=== PATIENT | male | born 1955 | race Caucasian/White ===

== ENCOUNTER 2018-07-10 08:36 | Emergency (ER) | payer BC, MEDICARE ==
[~2018-07-10] VITALS: Ht 180.3 cm; Wt 120.2 kg
[~2018-07-10 08:36] MED LIST: COUMADIN5 MG PO; FLAGYL500 MG PO; FLOMAX0.4 MG PO; KETOROLAC TROME10 MG PO; LEVAQUIN500 MG PO; TYLENOL WITH C1 EACH PO; ZOFRAN ODT4 MG SL
--- OUTSIDE RECORDS SUMMARY | 2018-07-10 08:39 | XMS REPORT ---
Author Author [facility] Address Unknown Phone Unavailable Care Team Providers Care Pin Or Clip Fastener Name Role Phone Unavailable Unavailable Payers Payer Name Policy Type Policy Number Effective Date Expiration Date Problems This patient has no known problems. Allergies, Adverse Reactions, Alerts Allergy Name Allergy Type Status Severity Reaction(s) Onset Date Inactive Date Treating Clinician Comments No Known Contrast Allergies DA Active U 2008-08-30 00:00:00 No Known Drug Allergies DA Active U 2008-08-30 00:00:00 No Known Food Allergies DA Active U 2008-08-30 00:00:00 No Known Other Allergies DA Active U 2008-08-30 00:00:00 Medications This patient has no known medications.
[2018-07-10] MEDS ORDERED: HYDROMORPHONE 1MG/1ML INJ IV STA (08:51)
[2018-07-10] MEDS ORDERED: KETOROLAC TROMETHAMINE 30 MG/ML VIAL IV STA (08:51)
[2018-07-10] MEDS ORDERED: SODIUM CHLORIDE 0.9% 1000ML 1,000 ML IV STA (08:51)
[2018-07-10] MEDS ORDERED: ONDANSETRON HCL INJ 2MG/ML 2ML 2 MG/ML VIAL IV STA (08:51)
[2018-07-10] MEDS ORDERED: HYDROMORPHONE 2MG/ML 2 MG/ML ML IV ONE (09:00)
[2018-07-10 09:32] LABS: BASOPHILS # (AUTO) 0.1 (0.0-0.1); BASOPHILS % 0.9 % (0.0-1.0); EOSINOPHILS # (AUTO) 0.3 (0.0-0.4); EOSINOPHILS % 3.3 % (0.0-6.0); HEMATOCRIT 46.9 % (38.2-49.6); LYMPHOCYTES # (AUTO) 1.1 (1.0-3.2); LYMPHOCYTES % 12.1 % (18.0-39.1); MEAN CORPUSCULAR HEMOGLOBIN 29.7 pg (28-32); MEAN CORPUSCULAR HGB CONC 32.8 g/dL (31-35); MEAN CORPUSCULAR VOLUME 90.4 fL (81-99); MONOCYTES # (AUTO) 0.9 (0.2-0.8); MONOCYTES % 9.9 % (4.4-11.3); NEUTROPHILS # (AUTO) 6.8 (2.1-6.9); NEUTROPHILS % 73.4 % (38.7-80.0); PLATELET COUNT 250 x10e3/uL (140-360); RED BLOOD COUNT 5.19 x10e6/uL (4.3-5.7); RED CELL DISTRIBUTION WIDTH 13.3 % (11.7-14.4)
[2018-07-10 09:39] LABS: HEMOGLOBIN 15.4 g/dL (14.0-18.0)
[2018-07-10 09:40] LABS: INR 2.25; PROTHROMBIN TIME 25.6 seconds (11.9-14.5)
[2018-07-10 09:41] LABS: PARTIAL THROMBOPLASTIN TIME 60.5 seconds (23.8-35.5)
[2018-07-10 09:48] LABS: ALANINE AMINOTRANSFERASE 30 IU/L (0-55); ALBUMIN 3.7 g/dL (3.5-5.0); ALKALINE PHOSPHATASE 116 IU/L (40-150); ANION GAP 11.3 mmol/L (8-16); BLOOD UREA NITROGEN 17 mg/dL (7-26); BUN/CREATININE RATIO 18 (6-25); CALCIUM 9.2 mg/dL (8.4-10.2); CARBON DIOXIDE 24 mmol/L (22-29); CHLORIDE 106 mmol/L (98-107); CREATININE, SERUM 0.92 mg/dL (0.72-1.25); EST GLOMERULAR FILTRATION RATE > 60 ML/MIN (60-); GLUCOSE 120 mg/dL (74-118); MAGNESIUM 2.3 MG/DL (1.3-2.1); POTASSIUM 4.3 mmol/L (3.5-5.1); SODIUM 137 mmol/L (136-145)
--- NOTE | 2018-07-10 10:16 | Diagnostic Imaging Report ---
EXAM: CT Abdomen and Pelvis WITHOUT contrast INDICATION: Renal stones. COMPARISON: Report from CT abdomen/pelvis 04/24/2016, however the images are not available for review at the time of this dictation. TECHNIQUE: Abdomen and pelvis were scanned utilizing a multidetector helical scanner from the lung base to the pubic symphysis without administration of IV contrast. Absence of intravenous contrast decreases sensitivity for detection of focal lesions and vascular pathology. Coronal and sagittal reformations were obtained. Stone protocol was performed. IV CONTRAST: None. ORAL CONTRAST: Water RADIATION DOSE: Total DLP: 775.1 mGy*cm Dose modulation, iterative reconstruction, and/or weight based adjustment of the mA/kV was utilized to reduce the radiation dose to as low as reasonably achievable. COMPLICATIONS: None FINDINGS: LINES and TUBES: None. LOWER THORAX: There is bibasilar atelectasis. HEPATOBILIARY: No focal hepatic lesions. No biliary ductal dilation. Status post cholecystectomy. SPLEEN: No splenomegaly. PANCREAS: There is mild inflammatory changes with stranding surrounding the pancreatic head and duodenum. There is diffuse fatty atrophy of the pancreas. No evidence of focal masses or ductal dilatation, although evaluation is limited in the absence of IV contrast. ADRENALS: No adrenal nodules KIDNEYS/URETERS: No evidence of hydronephrosis or mass lesion. Punctate 1 mm nonobstructing left lower pole stone. Possible 1 mm stone versus vascular calcification in the left lower pole on series 3, image 90 and in the right mid pole on image 84. No evidence of ureteral stone. GI TRACT: No abnormal distention, wall thickening, or evidence of bowel obstruction. There is scattered colonic diverticulosis without CT evidence of diverticulitis. Appendix is normal. There is fluid in the distal esophagus. PELVIC ORGANS/BLADDER: The prostate is enlarged measuring up to 4.9 cm. LYMPH NODES: No lymphadenopathy. VESSELS: There are scattered atherosclerotic calcifications in the aorta and branch vessels. PERITONEUM / RETROPERITONEUM: No free air or drainable fluid collection. Trace free fluid in the retroperitoneum. BONES/SOFT TISSUES: No acute osseous abnormality. No suspicious lytic or blastic lesions. IMPRESSION: Stranding surrounding the pancreatic head and duodenum. Findings may represent acute pancreatitis in the appropriate clinical setting. No evidence of drainable fluid collection. Punctate 1 mm bilateral renal calcifications, which may represent stones and/or vascular calcifications. No evidence of hydronephrosis. Signed by: Dr. Tahmina Godinez MD on 07/10/2018 10:13 AM
[2018-07-10 10:52] LABS: CLARITY,URINE SL CLOUDY (CLEAR); COLOR,URINE YELLOW (YELLOW)
[2018-07-10 10:53] LABS: BILIRUBIN,URINE NEGATIVE (NEGATIVE); KETONES,URINE NEGATIVE (NEGATIVE); LEUKOCYTE ESTERASE ,URINE NEGATIVE (NEGATIVE); NITRITE,URINE NEGATIVE (NEGATIVE); PROTEIN,URINE DIPSTICK NEGATIVE (NEGATIVE); URINE UROBILINOGEN 0.2 mg/dL (0.2 - 1)
[2018-07-10 11:23] LABS: EPITHELIAL CELLS,URINE RARE /LPF
[2018-07-10 11:24] LABS: RBC,URINE 0-5 /HPF (0-5)
[2018-07-10 12:30] VITALS: BP 151/88
== END 2018-07-10 12:33 | disposition home or self-care (01) ==
LOC: ER 08:36
DX: R10.9 Unspecified abdominal pain (principal); R11.0 Nausea; M54.5 Low back pain; N20.0 Calculus of kidney; I10 Essential (primary) hypertension; E78.5 Hyperlipidemia, unspecified; Z86.718 Personal history of other venous thrombosis and embolism; Z79.01 Long term (current) use of anticoagulants
CPT/HCPCS: 36415; 74176; 80053; 81001; 83690; 83735; 85025; 85610; 85730; 87086; 99284; J1885; J2405; J7030

== ENCOUNTER 2018-07-10 23:36 | Emergency (ER) | payer MEDICARE ==
[~2018-07-10] VITALS: Ht 180.3 cm; Wt 120.2 kg
[2018-07-11] MEDS ORDERED: KETOROLAC TROMETHAMINE 60 MG/2 ML VIAL IM ONE (00:15)
== END 2018-07-11 00:19 | disposition left against medical advice (07) ==
LOC: ER 23:36
DX: R52 Pain, unspecified (principal)
CPT/HCPCS: J1885

== ENCOUNTER 2020-11-13 14:31 | Emergency (ER) | payer MEDICARE ==
[~2020-11-13] VITALS: Ht 172.7 cm; Wt 136.1 kg
[2020-11-13] MEDS ORDERED: TETANUS/DIPHTHERIA TOX ADULT 0.5 ML SYR IM ONE (15:15)
[2020-11-13 15:55] LABS: INR 2.01; PROTHROMBIN TIME 23.8 seconds (11.9-14.5)
[2020-11-13 15:56] LABS: PARTIAL THROMBOPLASTIN TIME 32.7 seconds (23.8-35.5)
[2020-11-13] MEDS ORDERED: LIDOCAINE HCL 1% LOCAL INJ 20 ML VIAL ONE (17:37)
== END 2020-11-13 18:38 | disposition home or self-care (01) ==
LOC: ER 16:05
DX: S62.631B Displaced fracture of distal phalanx of left index finger, initial encounter for open fracture (principal); W27.0XXA Contact with workbench tool, initial encounter; Y92.008 Other place in unspecified non-institutional (private) residence as the place of occurrence of the external cause; I10 Essential (primary) hypertension; E78.5 Hyperlipidemia, unspecified; Z86.718 Personal history of other venous thrombosis and embolism; Z87.442 Personal history of urinary calculi
CPT/HCPCS: 11760; 36415; 73140; 85610; 85730; 90471; 90714; 99284; J2001

== ENCOUNTER 2021-10-21 20:32 | Emergency (ER) | payer MEDICARE ==
[~2021-10-21] VITALS: Ht 172.7 cm; Wt 136.1 kg
[2021-10-21 20:47] LABS: BASOPHILS # (AUTO) 0.1 (0.0-0.1); BASOPHILS % 1.2 % (0.0-1.0); EOSINOPHILS # (AUTO) 0.3 (0.0-0.4); EOSINOPHILS % 3.3 % (0.0-6.0); HEMATOCRIT 51.8 % (38.2-49.6); HEMOGLOBIN 16.5 g/dL (14.0-18.0); LYMPHOCYTES % 21.1 % (18.0-39.1); MEAN CORPUSCULAR HGB CONC 31.9 g/dL (31-35); MEAN CORPUSCULAR VOLUME 94.2 fL (81-99); MONOCYTES # (AUTO) 0.8 (0.2-0.8); MONOCYTES % 8.4 % (4.4-11.3); NEUTROPHILS # (AUTO) 6.2 (2.1-6.9); NEUTROPHILS % 65.5 % (38.7-80.0); PLATELET COUNT 343 x10e3/uL (140-360); RED CELL DISTRIBUTION WIDTH 13.2 % (11.7-14.4)
[2021-10-21 20:56] LABS: INR 1.89; PARTIAL THROMBOPLASTIN TIME 32.4 seconds (23.8-35.5); PROTHROMBIN TIME 23.2 seconds (11.9-14.5)
[2021-10-21 21:05] LABS: ALANINE AMINOTRANSFERASE 40 IU/L (0-55); ALBUMIN 3.7 g/dL (3.5-5.0); ALKALINE PHOSPHATASE 134 IU/L (40-150); BLOOD UREA NITROGEN 15 mg/dL (7-26); BUN/CREATININE RATIO 15 (6-25); CARBON DIOXIDE 25 mmol/L (22-29); CHLORIDE 105 mmol/L (98-107); CREATINE KINASE 114 IU/L (30-200); CREATININE, SERUM 1.02 mg/dL (0.72-1.25); GLUCOSE 229 mg/dL (74-118); SODIUM 141 mmol/L (136-145)
== END 2021-10-21 21:58 | disposition home or self-care (01) ==
LOC: ER 20:40
DX: R00.2 Palpitations (principal); I10 Essential (primary) hypertension; Z79.01 Long term (current) use of anticoagulants; Z86.718 Personal history of other venous thrombosis and embolism
CPT/HCPCS: 36415; 71045; 80053; 82550; 82553; 83880; 84484; 85025; 85379; 85610; 85730; 93005; 99284